=== PATIENT | male | born 1950 | race Caucasian/White ===

== ENCOUNTER 2022-12-01 14:01 | Inpatient (IN) | payer MEDICARE, OTHER ==
[~2022-12-01] VITALS: Ht 177.8 cm; Wt 117.8 kg
[2022-12-01 09:15] VITALS: BP 168/72
[2022-12-01 14:37] LABS: BASO # 0.1 10^3/uL (0.0-0.2); BASO % 0.5 % (0.0-1.0); EOS # 0.2 10^3/uL (0.0-0.5); EOS % 1.8 % (0.0-3.0); HEMATOCRIT 44.6 % (42.0-52.0); HEMOGLOBIN 14.1 g/dl (13.5-17.5); LYMPH # 3.8 10^3/uL (1.5-5.0); LYMPH % 29.1 % (24.0-44.0); MEAN CORPUSCULAR HEMOGLOBIN 29.6 pg (27.0-33.0); MEAN CORPUSCULAR HGB CONC 31.6 g/dl (32.0-36.5); MEAN CORPUSCULAR VOLUME 93.7 fl (80.0-96.0); MONO # 1.1 10^3/uL (0.0-0.8); MONO % 8.2 % (2.0-8.0); NEUTROPHILS # 7.7 10^3/uL (1.5-8.5); NEUTROPHILS % 59.8 % (36.0-66.0); PLATELET COUNT, AUTOMATED 263 10^3/uL (150-450); RED BLOOD COUNT 4.76 10^6/uL (4.30-6.10); WHITE BLOOD COUNT 12.9 10^3/uL (4.0-10.0)
[2022-12-01 14:50] LABS: INR 2.89; PROTHROMBIN TIME 30.7 SECONDS (12.5-14.5)
[2022-12-01 14:51] LABS: PARTIAL THROMBOPLASTIN TIME 43.8 SECONDS (24.8-34.2)
[2022-12-01 15:02] LABS: LIPASE 42 U/L (12-53)
[2022-12-01 15:04] LABS: ALKALINE PHOSPHATASE 71 U/L (46-116); ALT/SGPT 18 U/L (7.0-40); AST/SGOT 20 U/L (<34); BILIRUBIN,DIRECT 0.1 MG/DL (<0.4); BILIRUBIN,TOTAL 0.4 MG/DL (0.3-1.2); BLOOD UREA NITROGEN 19 MG/DL (9-23); CALCIUM LEVEL 9.4 MG/DL (8.3-10.6); CARBON DIOXIDE LEVEL 32 MMOL/L (20-31); CHLORIDE LEVEL 104 MMOL/L (98-107); CK-MB VALUE MASS < 1.0 NG/ML (<3.6); CPK CREATINE PHOSPHOKINASE 49 U/L (46-171); CREATININE FOR GFR 1.73 MG/DL (0.70-1.30); GLOMERULAR FILTRATION RATE 41.4 (>42); GLUCOSE, FASTING 107 MG/DL (74-106); MB/CK RELATIVE INDEX 2.04 (< OR =4); POTASSIUM SERUM 4.8 MMOL/L (3.5-5.1); SODIUM LEVEL 144 MMOL/L (136-145); TOTAL PROTEIN 6.9 G/DL (5.7-8.2)
[2022-12-01 15:06] LABS: THYROID STIMULATING HORMONE 5.107 uIU/ML (0.55-4.78)
[2022-12-01 15:07] LABS: RSV AMPLIFICATION NEGATIVE (NEGATIVE)
[2022-12-01] MEDS: PRAMIPEXOLE 0.25 MG TAB PO SCH ×2 (16:00→22:05)
[2022-12-01] MEDS ORDERED: AMIO200T49 PO (17:30)
[2022-12-01] MEDS ORDERED: POTA1TAB23 PO (17:30)
[2022-12-01] MEDS ORDERED: TAMS1CAP17 PO (17:30)
[2022-12-01] MEDS ORDERED: MAPA500C PO (17:30)
[2022-12-01] MEDS ORDERED: METO1TAB33 PO (17:30)
[2022-12-01] MEDS ORDERED: PRAM0.252 PO (17:30)
[2022-12-01] MEDS ORDERED: TORS20TA2 PO (17:30)
[2022-12-01] MEDS ORDERED: LEVO50TA5 PO (17:30)
[2022-12-01] MEDS ORDERED: ARIP1TAB44 PO (17:30)
[2022-12-01] MEDS ORDERED: ZOLO100T PO (17:30)
[2022-12-01] MEDS ORDERED: HOME MED LIST COMPLETE! XX SCH (18:15)
[2022-12-01 19:11] LABS: CK-MB VALUE MASS < 1.0 NG/ML (<3.6); CPK CREATINE PHOSPHOKINASE 61 U/L (46-171); MB/CK RELATIVE INDEX 1.63 (< OR =4)
[2022-12-01] MEDS ORDERED: XARE20TA PO (19:36)
[2022-12-01] MEDS ORDERED: VENTAER INH (19:36)
[2022-12-01] MEDS ORDERED: TREL1AER INH (19:36)
[2022-12-01] MEDS: ACETAMINOPHEN 500 MG TAB PO SCH (21:00)
[2022-12-01] MEDS ORDERED: ALBUTEROL 90 MCG/ACT 8GM HFA INHALER INH PRN (21:45)
[2022-12-01 23:24] VITALS: BP 120/60
[2022-12-02 04:00] VITALS: BP 123/59
[2022-12-02 05:19] LABS: BASO # 0.1 10^3/uL (0.0-0.2); BASO % 0.5 % (0.0-1.0); EOS # 0.3 10^3/uL (0.0-0.5); EOS % 2.8 % (0.0-3.0); HEMATOCRIT 39.3 % (42.0-52.0); HEMOGLOBIN 12.4 g/dl (13.5-17.5); LYMPH # 3.3 10^3/uL (1.5-5.0); LYMPH % 27.7 % (24.0-44.0); MEAN CORPUSCULAR HEMOGLOBIN 29.3 pg (27.0-33.0); MEAN CORPUSCULAR HGB CONC 31.6 g/dl (32.0-36.5); MEAN CORPUSCULAR VOLUME 92.9 fl (80.0-96.0); MONO # 1.2 10^3/uL (0.0-0.8); MONO % 9.9 % (2.0-8.0); NEUTROPHILS % 58.5 % (36.0-66.0); PLATELET COUNT, AUTOMATED 227 10^3/uL (150-450); RED BLOOD COUNT 4.23 10^6/uL (4.30-6.10)
[2022-12-02 05:38] LABS: MAGNESIUM LEVEL 2.2 MG/DL (1.8-2.4)
[2022-12-02 05:40] LABS: CALCIUM LEVEL 8.7 MG/DL (8.3-10.6); CREATININE FOR GFR 1.45 MG/DL (0.70-1.30); GLOMERULAR FILTRATION RATE 50.8 (>42)
[2022-12-02] MEDS ORDERED: LEVOTHYROXINE 75MCG TABLET (0.075MG) PO SCH (06:00)
[2022-12-02 07:40] VITALS: BP 118/65
[2022-12-02] MEDS ORDERED: FLUTICASONE HFA 110MCG 12GM INHALER (FLOVENT) INH SCH (08:00)
[2022-12-02] MEDS ORDERED: RIVAROXABAN 20MG TAB (XARELTO) PO SCH (08:00)
[2022-12-02] MEDS: PRAMIPEXOLE 0.25 MG TAB PO SCH (08:07)
[2022-12-02] MEDS: ACETAMINOPHEN 500 MG TAB PO SCH (08:08)
[2022-12-02] MEDS ORDERED: SERTRALINE 100 MG TAB PO SCH (09:00)
[2022-12-02] MEDS ORDERED: TAMSULOSIN 0.4 MG CAP PO SCH (09:00)
[2022-12-02] MEDS ORDERED: ARIPiprazole 15 MG TAB (AbiLIFY) PO SCH (09:00)
[2022-12-02] MEDS ORDERED: AMIO200T49 PO (11:28)
[2022-12-02] MEDS ORDERED: LEVO50TA5 PO (11:28)
[2022-12-02 12:00] VITALS: BP 150/66
[2022-12-03] MEDS ORDERED: FLUBLOK(EGG FREE)(QUAD)INFLUENZA VACC 0.5ML SYRINGE 18YRS & OLDER IM.IMMUN ONE (09:00)
== END 2022-12-02 13:56 | disposition home or self-care (01) | DRG 644 ==
LOC: M ED 15:22 → M ED INP 18:16 → ENRESERV 19:50 → M PCU 21:00
PROVIDERS: ADMIT Internal Medicine; ATTEND Internal Medicine
DX: E03.9 Hypothyroidism, unspecified (principal); N17.9 Acute kidney failure, unspecified; J44.9 Chronic obstructive pulmonary disease, unspecified; G47.33 Obstructive sleep apnea (adult) (pediatric); I48.91 Unspecified atrial fibrillation; R00.1 Bradycardia, unspecified; Z90.49 Acquired absence of other specified parts of digestive tract; F32.A Depression, unspecified; N40.0 Benign prostatic hyperplasia without lower urinary tract symptoms; G25.81 Restless legs syndrome; Z20.822 Contact with and (suspected) exposure to COVID-19; Z79.890 Hormone replacement therapy; Z79.899 Other long term (current) drug therapy; Z87.891 Personal history of nicotine dependence; N18.9 Chronic kidney disease, unspecified